=== PATIENT | female | born 1955 | race Caucasian/White ===

== ENCOUNTER 2017-07-26 12:55 | Emergency (ER) | payer MEDICAID, OTHER ==
--- NOTE | 2017-07-26 13:27 | ED PDOC ---
Arrival/HPI - General Time Seen by Provider: 07/26/17 13:26 Historian: Patient - History of Present Illness Narrative History of Present Illness (Text): 07/26/17 13:27 This 62 yo female with pmh DM, HTN, presents to this ED c/o right groin infection x 5 days. Patient stated wound has been draining pus x 1-2 days. Patient has been applying warmth compress. Patient denies fever, or streaking erythema. Denies other complains. Time/Duration: Other (see hpi) Context: Home Past Medical History - Provider Review Nursing Documentation Reviewed: Yes - Cardiac Hx Cardiac Disorders: Yes Hx Hypertension: Yes - Endocrine/Metabolic Hx Diabetes Mellitus Type 2: Yes - Psychiatric Hx Psychophysiologic Disorder: No Hx Substance Use: No Family/Social History - Physician Review Nursing Documentation Reviewed: Yes Family/Social History: Other (noncontributory) Smoking Status: Never Smoked Hx Alcohol Use: No Hx Substance Use: No Allergies/Home Meds Allergies/Adverse Reactions: Allergies No Known Allergies Allergy (Verified 12/14/15 12:32) Home Medications: Home Meds Medication Instructions Recorded Confirmed Carvedilol [Coreg] 12/14/15 Insulin Aspart, Recombinant 12/14/15 [Novolog] Losartan Potassium [Losartan 12/14/15 Potassium] Meloxicam [Mobic] 12/14/15 Metformin HCl [Glumetza] 12/14/15 Pravastatin Sodium [Pravachol] 12/14/15 12/14/15 Review of Systems - Review of Systems Constitutional: Normal. absent: Fatigue, Weight Change, Fevers Eyes: Normal ENT: Normal Respiratory: Normal. absent: SOB, Cough Cardiovascular: Normal. absent: Chest Pain Gastrointestinal: Normal. absent: Abdominal Pain, Nausea, Vomiting Genitourinary Female: Normal. absent: Dysuria, Frequency, Hematuria Musculoskeletal: Normal Skin: Abscess, Cellulitis Neurological: Normal. absent: Headache, Dizziness Endocrine: Normal Hemo/Lymphatic: Normal Psychiatric: Normal Physical Exam Vital Signs Temp Pulse Resp BP Pulse Ox 07/26/17 13:40 98.6 F 90 16 142/68 96 Temperature: Afebrile Blood Pressure: Normal Pulse: Regular Respiratory Rate: Normal Appearance: Positive for: Well-Appearing, Non-Toxic, Comfortable Pain Distress: None Mental Status: Positive for: Alert and Oriented X 3 - Systems Exam Head: Present: Atraumatic, Normocephalic Pupils: Present: PERRL Extroacular Muscles: Present: EOMI Conjunctiva: Present: Normal Mouth: Present: Moist Mucous Membranes Neck: Present: Normal Range of Motion Respiratory/Chest: Present: Clear to Auscultation, Good Air Exchange. No: Wheezes, Rhonchi Cardiovascular: Present: Regular Rate and Rhythm, Normal S1, S2. No: Murmurs Upper Extremity: Present: Normal Inspection, Normal ROM Lower Extremity: Present: NORMAL PULSES, Neurovascularly Intact, Capillary Refill < 2 s, Other ((+) 3 cm right groin abscess. With central point of drainage area. No fluctuance or induration with surrounding erythema.). No: Edema, CALF TENDERNESS Neurological: Present: GCS=15, CN II-XII Intact, Speech Normal, Motor Func Grossly Intact, Normal Sensory Function, Normal Cerebellar Funct, Gait Normal Skin: Present: Warm, Dry, Normal Color, Erythematous (see LE), Abscess. No: Rashes Psychiatric: Present: Alert, Oriented x 3, Normal Insight, Normal Concentration Medical Decision Making ED Course and Treatment: 07/26/17 14:04 Re-evaluation. Patient feels better. Discussed results and plan with patient who expresses understanding. All questions answered and there is agreement with the plan to discharge home with instructions. Patient stable for discharge. Return if symptoms persist or worsen. Patient was recommended to return to ED in 2 days due to pmh DM, or to follow up pmd in 1-2 days. To return to emergency if groin infection sooner, fever. Patient remained stable during the course of ED visit, and afebrile, with normal VS. Re-evaluation Time: 14:05 Reassessment Condition: Re-examined, Improved - Medication Orders Current Medication Orders: Discontinued Medications Amoxicillin/Clavulanate Potassium (Augmentin 875 Mg-125 Mg Tab) 1 tab PO STAT STA PRN Reason: Protocol Stop: 07/26/17 13:45 Trimethoprim/Sulfamethoxazole (Bactrim Ds Tab) 1 tab PO STAT STA PRN Reason: Protocol Stop: 07/26/17 13:45 Disposition/Present on Arrival - Present on Arrival Any Indicators Present on Arrival: No History of DVT/PE: No History of Uncontrolled Diabetes: No Urinary Catheter: No History Surgical Site Infection Following: None - Disposition Have Diagnosis and Disposition been Completed?: Yes Diagnosis: Abscess or cellulitis of groin Disposition: HOME/ ROUTINE Disposition Time: 14:06 Patient Plan: Discharge Patient Problems: Current Active Problems Problem Status Onset Abscess or cellulitis of groin Acute Condition: GOOD Discharge Instructions (ExitCare): Cellulitis (ED), Abscess (ED) Additional Instructions: Call private doctor for follow up visit in 1-2 days for wound check. Return to emergency in 2 days if unable to see your doctor. Clean wound 2 -3 times daily with soap and water and apply antibiotic ointment. Return to emergency sooner if wound infection worsen, fever or symptoms worsen. Prescriptions: Amoxicillin/Clavulanate [Augmentin 875 MG-125 MG] 1 tab PO BID #19 tab Mupirocin 2% Ointment [Bactroban Ointment] 1 appl TP TID #1 tube Sulfamethoxazole/Trimethoprim [Bactrim DS 800 mg-160 mg] 1 tab PO BID #19 tab Referrals: Soledad Forrester MD [Family Provider] - Follow up with primary
[2017-07-26 13:31] VITALS: BMI 44.9
[2017-07-26 13:41] VITALS: TEMP 98.6
[2017-07-26] MEDS ORDERED: Tmp-Smz 800 mg-160 mg DS Tab PO STA (13:44)
[2017-07-26] MEDS ORDERED: Amoxicillin-Clav 875-125 mg Tab PO STA (13:44)
[2017-07-26 16:09] VITALS: BP 139/70; PULSE 88; RESP 18; O2SAT 97
== END 2017-07-26 14:35 | disposition home or self-care (01) ==
LOC: ED 12:55
DX: L02.214 Cutaneous abscess of groin (principal)

== ENCOUNTER 2017-07-28 12:34 | Emergency (ER) | payer MEDICAID ==
[2017-07-28 12:34] VITALS: BMI 44.9
[2017-07-28 13:09] VITALS: RESP 18; TEMP 98.7
--- NOTE | 2017-07-28 14:13 | ED PDOC ---
Arrival/HPI - General Chief Complaint: Wound Check Time Seen by Provider: 07/28/17 12:36 Historian: Patient - History of Present Illness Narrative History of Present Illness (Text): 62 y/o female w/ pmhx of dm , recently diagnosed rt groin abscess w/ already extant draining at the time on 07/26/17 , discharged on abx in the interim prresents for 2 day wound check denying any fevers/chuills/gait reluctance nor any other systemic symptoms, on the onctrary pt. feels that pain is improving/ abscess continues to drain, she has been conducting hot soaks, and she asserts the size and induration of lesion continues to diminish. Pt verbalized understanding of clinical symptoms/findings of wrosineing infection . 07/28/17 14:09 Time/Duration: < week Symptom Course: Improving Quality: Aching Past Medical History - Provider Review Nursing Documentation Reviewed: Yes - Reproductive Menopause: Yes - Cardiac Hx Cardiac Disorders: Yes Hx Hypertension: Yes - Pulmonary Hx Respiratory Disorders: No - Neurological Hx Neurological Disorder: No - HEENT Hx HEENT Disorder: No - Renal Hx Renal Disorder: Yes Hx Kidney Stones: Yes - Endocrine/Metabolic Hx Diabetes Mellitus Type 2: Yes - Hematological/Oncological Hx Blood Disorders: No - Integumentary Hx Dermatological Disorder: No - Musculoskeletal/Rheumatological Hx Musculoskeletal Disorders: No - Gastrointestinal Hx Gastrointestinal Disorders: No - Genitourinary/Gynecological Hx Genitourinary Disorders: No - Psychiatric Hx Psychophysiologic Disorder: No Hx Substance Use: No - Surgical History Hx Tubal Ligation: Yes (at age 22) - Anesthesia Hx Anesthesia: Yes Hx Anesthesia Reactions: No Hx Malignant Hyperthermia: No Family/Social History - Physician Review Nursing Documentation Reviewed: Yes Family/Social History: No Known Family HX Smoking Status: Never Smoked Hx Alcohol Use: No Hx Substance Use: No Allergies/Home Meds Allergies/Adverse Reactions: Allergies No Known Allergies Allergy (Verified 07/28/17 13:01) Home Medications: Home Meds Medication Instructions Recorded Confirmed Carvedilol [Coreg] 3.125 mg PO BID 12/14/15 07/28/17 Losartan Potassium [Losartan 100 mg PO DAILY 12/14/15 07/28/17 Potassium] Atorvastatin [Lipitor] 10 mg PO DAILY 07/26/17 07/28/17 Gabapentin [Neurontin] 300 mg PO TID 07/26/17 07/28/17 Insulin Lispro [humALOG] 07/26/17 Meloxicam [Mobic] 15 mg PO DAILY 07/26/17 07/28/17 amLODIPine [Norvasc] 5 mg PO DAILY 07/26/17 07/28/17 Review of Systems - Physician Review All systems were reviewed & negative as marked: Yes - Review of Systems Constitutional: Normal Eyes: Normal ENT: Normal Respiratory: Normal Cardiovascular: Normal Gastrointestinal: Normal Genitourinary Female: Other (aforementioned ) Musculoskeletal: Normal Skin: Normal Neurological: Normal Endocrine: Normal Hemo/Lymphatic: Normal Psychiatric: Normal Physical Exam Vital Signs Reviewed: Yes Vital Signs Temp Pulse Resp BP Pulse Ox 07/28/17 12:34 98.7 F 79 18 140/84 97 Temperature: Afebrile Blood Pressure: Normal Pulse: Regular Respiratory Rate: Normal Appearance: Positive for: Well-Appearing, Non-Toxic, Comfortable Pain Distress: None Mental Status: Positive for: Alert and Oriented X 3 - Systems Exam Head: Present: Atraumatic, Normocephalic Pupils: Present: PERRL Extroacular Muscles: Present: EOMI Conjunctiva: Present: Normal Mouth: Present: Moist Mucous Membranes Neck: Present: Normal Range of Motion Respiratory/Chest: Present: Clear to Auscultation, Good Air Exchange. No: Respiratory Distress, Accessory Muscle Use Cardiovascular: Present: Regular Rate and Rhythm, Normal S1, S2. No: Murmurs Abdomen: Present: Normal Bowel Sounds. No: Tenderness, Distention, Peritoneal Signs Genitourinary/Pelvic Exam: Present: Other Back: Present: Normal Inspection Upper Extremity: Present: Normal Inspection. No: Cyanosis, Edema Lower Extremity: Present: Other (rt groin 3x4 cm indurated pustulent draiining, partially purpuic , w/ overlying fibrinopurulent exudate, w/ significnat pressure it is drianining minimally , no surrounding cellulitis. ). No: Edema Neurological: Present: GCS=15, CN II-XII Intact, Speech Normal, Motor Func Grossly Intact, Normal Sensory Function, Normal Cerebellar Funct, Norm Deep Tendon Reflexes, Gait Normal, Memory Normal, Normal 2Pt Descrimination Skin: Present: Warm, Dry, Normal Color. No: Rashes Psychiatric: Present: Alert, Oriented x 3, Normal Insight, Normal Concentration Medical Decision Making ED Course and Treatment: 62 y/o woman w/ rt groin abscess on day 3 double antibiotics , here for wound check , healing on schedule, refusing offerred incision andrainae, denying systemic sympotms, will advise to continue w/ abx and pmd f/u . 07/28/17 14:17 Disposition/Present on Arrival - Present on Arrival Any Indicators Present on Arrival: No History of DVT/PE: No History of Uncontrolled Diabetes: No Urinary Catheter: No History of Decub. Ulcer: No History Surgical Site Infection Following: None - Disposition Have Diagnosis and Disposition been Completed?: Yes Diagnosis: Abscess Disposition: HOME/ ROUTINE Disposition Time: 14:19 Patient Plan: Discharge Condition: GOOD Discharge Instructions (ExitCare): Abscess (ED) Print Language: FRISIAN Additional Instructions: Continue with hot soaks 15-20 minutes /day 2-3 times day, w/ applied pressure simultaneously , continue with antibiotics. Return in 4 days for another abscess check , return earlier for change in pain character witjh worseining pain, and or fever. Referrals: Soledad Forrester MD [Primary Care Provider] - Follow up with primary
[2017-07-28 15:25] VITALS: BP 137/78; PULSE 68; O2SAT 99
== END 2017-07-28 14:30 | disposition home or self-care (01) ==
LOC: ED 12:34
DX: L02.214 Cutaneous abscess of groin (principal)